=== PATIENT | female | born 1965 | race African-American/Black ===

== ENCOUNTER → 2016-09-22 | Outpatient (CLI) | payer OTHER ==
--- NOTE | 2016-09-22 12:26 | RAD ---
APPROVED REPORT Patient Location : OUT-PATIENT Indications Lower Extremity Pain : Bilateral Lower Extremity Edema : Bilateral Risk Factors Obesity Findings The right and left greater and lesser saphenous veins were imaged to evaluate for reflux. The right g reat saphenous vein measures approximately 7 mm with a reflux time of 2.3 seconds throughout its cour se. The right lesser saphenous vein does not reveal any evidence of reflux. The left greater saphenou s vein measures approximately 5 mm at the junction and does not show any evidence of reflux. The left lesser saphenous vein was not well identified. Of note the right anterior accessory vein is present but no clear evidence of reflux is noted. There is one supervisor trust accounts approximately 24 cm up and 11 cm back with a diameter 1.5 mm on the right side. Critical Notification Critical Value: No <Conclusion> Positive for reflux in the right greater saphenous vein. 1 supervisor trust accounts identified in the right calf.
--- NOTE | 2016-09-22 12:37 | RAD ---
APPROVED REPORT Bilateral Lower Extremity Venous Study for Venous Competence Patient Location: OUT-PATIENT Indications Lower Extremity Pain: Bilateral Lower Extremity Edema: Bilateral Varicose Veins Risk Factors Obesity Vein Imaging (Right) CFV (R): Compressible SFJ (R): Compressible FEM (R): Compressible POP (R): C, Compressible DFV (R): Compressible GSV (R): Compressible Vein Imaging (Left) CFV (L): Compressible SFJ (L): Compressible FEM (L): Compressible POP (L): Compressible GSV (L): Compressible Doppler Evaluation (Right) CFV (R): Phasic POP (R):Phasic Doppler Evaluation (Left) CFV (L):Phasic POP (L):Phasic Findings The bilateral deep venous system in the lower external knees was evaluated for thrombus. The common femoral vein, superficial femoral vein and popliteal veins bilaterally appear to be compre ssible. Normal spectral waveforms and color Doppler is noted. Bilateral profunda veins are also compr essible. The below-knee veins were not well visualized. Critical Notification Critical Value: No <Conclusion> No deep venous thrombosis noted in the common femoral, superficial femoral and popliteal veins bilate rally.
== END | disposition home or self-care (01) ==
LOC: US 08:23
PROVIDERS: ATTEND Internal Medicine Cardiovascular Disease
DX: I87.2 Venous insufficiency (chronic) (peripheral) (principal)
CPT/HCPCS: 93970

== ENCOUNTER → 2016-11-01 | Outpatient (CLI) | payer OTHER ==
--- NOTE | 2016-11-01 12:58 | RAD ---
Bilateral limited breast ultrasound 11/01/2016 Clinical history: Six-month follow-up of probably benign nodules within both breasts. Technique: A real-time ultrasound examination of the right breast at the 2:00 position and the left breast at the 2 and 6:00 position was performed. Multiple images were obtained. Findings: Comparison study is dated 04/21/2016. The 4 mm complex cyst seen on the patient's previous ultrasound is not visualized on today's study and has presumably resolved. No solid or cystic mass is seen within the visualized portions of the right breast by ultrasound. A 5 mm rounded anechoic structure with internal echoes is seen at the 2:00 position of the left breast. This is unchanged. Its ultrasound appearance is consistent with a slightly complex cyst. The 8 mm complex cyst seen at the 6:00 position of the left breast on the previous examination is not visualized on today's study and has presumably resolved. No solid or cystic mass is seen in this area by ultrasound. Impression: The complex cysts seen within the right breast and the 6:00 position of the left breast are no longer visualized and presumably have resolved.. Stable sonographic appearance of the 5 mm complex cyst at the 2:00 position of the left breast. No new mass is seen. I would recharacterize the patient's mammograms as a BI-RADS Category 2 benign findings with a recommendation for routine yearly screening mammography for follow-up. Patient information was entered into the reminder system with a target date for the patient's next screening mammogram of 04/05/2017.
== END | disposition home or self-care (01) ==
LOC: KCIC US 12:25
PROVIDERS: ATTEND Obstetrics & Gynecology
DX: R92.8 Other abnormal and inconclusive findings on diagnostic imaging of breast (principal)
CPT/HCPCS: 76641

== ENCOUNTER → 2016-12-26 | Outpatient (CLI) | payer OTHER ==
[~2016-12-26] MED LIST: EPI SQ ONE; LIDOCAINE SQ ONE; SODIUM BICARBONATE SQ ONE; [UNRECOGNIZED DRUG - OTHER] SQ ONE
--- NOTE | 2016-12-26 11:48 | CARD ---
APPROVED REPORT Patient StatusOUT-PATIENT Manager Lighting: RHIANNON VENCES Procedure(s) performed: Endovenous radiofrequency ablation of the right greater saphenous vein. INDICATION FOR PROCEDURE The indication(s) include : Symptomatic Chronic Venous Insufficiency with Varicose Veins, lower extre mity pain and edema. PROCEDURE NARRATIVE The patient was transferred to the procedure suite and the insufficient saphenous vein was mapped by ultrasound and diagrammed on the underlying skin. The depth and diameter of the vein(s) to be treate d was documented. The varicose tributary veins and suitable access sites were identified and mapped as well. The patient was then positioned supine on the procedure table. The entire limb was sterile ly prepared and the lower extremity and treatment table were sterilely draped. The RF catheter was placed on the sterile field, flushed and wiped down, prepared, and connected by a sterile cable. The patient was placed in reverse-Trendelenburg position and local anesthesia was instilled in the sk in overlying the access site. A skin incision was made overlying the identified and mapped greater s aphenous vein entry site. The vein was punctured through the incision and using ultrasound guidance and the Seldinger technique a guide wire was introduced through the needle which was then exchanged o rai the guide wire for a 7 F sheath. The guide wire was removed and the sheath was flushed. The RF probe was placed into the vein through the sheath and positioned at a point just distal (about 0.5 to 1 cm) to the entrance point of the superficial epigastric artery using ultrasound guidance. After the RF probe position was verified by the ultrasound, tumescent anesthesia was infiltrated, und er ultrasound guidance, precisely into the perivenuus compartment along the entire length of vein fro m the entry site to the saphenofemoral junction until a "halo" of fluid was noted around the vein. The patient was then placed in Trendelenburg position. After the RF probe position was again confirm ed with ultrasound imaging, moderate external compression was applied over the RF heating element, an d RF energy was applied. The probe was withdrawn sequentially in 6.5 cm steps with slight overlap of 7 cm segments of ablation and monitored to keep the probe temperature at 120 degrees Celsius and the generator output well below its maximum power. Treatment Segments: 6 Total Length: 26 cm. Tota l Ablation time: 2 minutes. Repeat ultrasound of the saphenous vein was performed confirming successful treatment. The catheter and sheath were withdrawn and hemostasis established with direct pressure. After assuring hemostasis , the skin incision over the saphenous vein was closed with a bandage and an external compression jerri ssing was applied from the level of the foot to the most proximal level of the thigh.
== END | disposition home or self-care (01) ==
LOC: VNUS 10:58
PROVIDERS: ATTEND Internal Medicine Cardiovascular Disease
DX: I83.11 Varicose veins of right lower extremity with inflammation (principal)
CPT/HCPCS: 36475; J3490; J7030

== ENCOUNTER → 2016-12-29 | Outpatient (CLI) | payer OTHER ==
--- NOTE | 2016-12-29 12:07 | RAD ---
APPROVED REPORT Right Lower Extremity Venous Study for DVT Patient Location: OUT-PATIENT Indications s/p rt gsv ablation Vein Imaging (Right) CFV (R): Compressible SFJ (R): Compressible FEM (R): Compressible POP (R): Compressible DFV (R): Compressible PTV (R): Spontaneous GSV (R): Absent Flow Peroneals (R): Spontaneous Doppler Evaluation (Right) CFV (R): Spontaneous POP (R):Spontaneous Findings Kinney scale images of the right common femoral, superficial femoral and popliteal veins does not revea l any evidence of thrombus. The veins are compressible. Color Doppler and spectral waveforms do not s how any evidence of obstruction to flow. The below-knee veins appear to show spontaneous flow. [facility] great saphenous vein is ablated total point just distal to the saphenofemoral junction of approxi mate 2 cm. No evidence of deep venous thrombosis is noted. Critical Notification Critical Value: No <Conclusion> Negative for deep venous thrombosis in the right lower extremity with a successful great saphenous ve in ablation consistent with history.
== END | disposition home or self-care (01) ==
LOC: US 08:00
PROVIDERS: ATTEND Internal Medicine Cardiovascular Disease
DX: I82.403 Acute embolism and thrombosis of unspecified deep veins of lower extremity, bilateral (principal)
CPT/HCPCS: 93971

== ENCOUNTER → 2019-02-25 | Outpatient (CLI) | payer OTHER ==
--- NOTE | 2019-02-25 17:55 | KCIC ---
Bilateral digital screening mammograms with 3-D tomosynthesis: Reason for examination: Routine screening. Comparison is made to previous studies dated 04/05/2016 and 07/07/2010. Bilateral mammograms in CC and oblique projections were obtained with 2-D imaging and 3-D tomosynthesis imaging on a Siemens Inspiration unit and reviewed on the workstation. Interpretation was made with the benefit of CAD. The skin and nipples show no abnormalities. No abnormal axillary lymph nodes are seen. The breast parenchyma is heterogeneously dense. (Breast density: Category C.) There are no dominant masses, suspicious calcifications or architectural distortion. Impression: No evidence of malignancy. Recommend routine screening. Your patient's mammogram demonstrates that she has dense breast tissue (breast density category C or D), which could hide abnormalities, and if she has other risk factors for breast cancer that have been identified, she might benefit from supplemental screening tests that may be suggested by you as her ordering physician. Dense breast tissue, in and of itself, is a relatively common condition. Therefore, this information is not provided to cause undue concern, but rather to raise your awareness and to promote discussion with your patient regarding the presence of other risk factors, in addition to dense breast tissue. Your patient's mammography results will be sent to her. BI-RAD Category 2: Benign. "Our facility is accredited by the [employer] Mammography Program." This patient's information has been entered into a reminder system for the patient to be notified with the results of her examination and a target date for the next mammogram. Electronically signed by: Lakshmi Mendosa MD (02/25/2019 5:52 PM) [id number]
== END | disposition home or self-care (01) ==
LOC: KCIC MAMMO 16:53
PROVIDERS: ATTEND Obstetrics & Gynecology
DX: Z12.31 Encounter for screening mammogram for malignant neoplasm of breast (principal)
CPT/HCPCS: 77063; 77067

== ENCOUNTER → 2019-07-10 | Outpatient (CLI) | payer OTHER ==
[~2019-07-10] MED LIST changes: -EPI SQ ONE; +IOHEXOL 240 MG/ML 50ML VIAL. PO ONE; +IOHEXOL 300 MG/ML 100ML VIAL. IV ONE; -LIDOCAINE SQ ONE; -SODIUM BICARBONATE SQ ONE; -[UNRECOGNIZED DRUG - OTHER] SQ ONE
--- NOTE | 2019-07-11 11:39 | KCIC ---
CT of the abdomen with and without IV contrast compared to similar examination dated April 26, 2016 for right upper quadrant mass, hernia, prior , prior hysterectomy, patient feels a mass in the right upper quadrant, feels different than 4 years ago, possible lipoma on a prior CT scan. TECHNIQUE: Contiguous helical 3 mm axial images are obtained through the abdomen both prior to and following administration of IV contrast. Sagittal and coronal reformations are evaluated. FINDINGS: Lung bases are clear. There is a small amount of debris within the distal esophagus of doubtful clinical concern. No significant osseous abnormalities are seen. In segment 8 of the liver on series #3 axial image #17, there is a 1.5 cm vague nodular hypervascular region which does not displace vascularity, and is unchanged from 2016, and is most consistent with focal perfusion abnormality. There are a few subcentimeter cystic lesions throughout the liver which are too small to characterize but almost certainly benign. No further follow-up is encouraged. The spleen, pancreas, gallbladder, and bilateral adrenal glands are grossly unremarkable. Bilateral kidneys are grossly unremarkable as well. No suspicious mesenteric or retroperitoneal adenopathy is seen. No vascular anomalies are evident. There is heterogeneous opacification of large and small bowel with no gross abnormalities identified. In the right anterior abdominal subcutaneous tissues, there is redemonstration of a circumscribed homogeneously fatty ovoid lesion immediately superficial to the abdominal musculature, measuring 7.3 x 2.9 cm today, slightly larger than on the prior examination where it measured 5.1 cm in greatest dimension. There are no suspicious features to this abnormality and this almost certainly represents an enlarging benign lipoma. IMPRESSION: 1. Circumscribed homogeneous fatty focal lesion within the right hemiabdominal subcutaneous tissues slightly larger today, devoid of any suspicious features, and almost certainly an enlarging benign lipoma. 2. Benign-appearing hypervascular focus in segment 8 of the liver likely focal perfusion defect. No further follow-up is encouraged. 3. Multiple subcentimeter cystic lesions in the liver which are too small to completely characterize but almost certainly benign. No further follow-up is encouraged. PQRS Compliance Statement: One or more of the following individualized dose reduction techniques were utilized for this examination: 1. Automated exposure control 2. Adjustment of the mA and/or kV according to patient size 3. Use of iterative reconstruction technique Electronically signed by: Nate Kendrcik MD (07/11/2019 11:36 AM) [id number]
== END | disposition home or self-care (01) ==
LOC: KCIC CT 11:57
PROVIDERS: ATTEND Family Medicine
DX: R19.01 Right upper quadrant abdominal swelling, mass and lump (principal); M79.89 Other specified soft tissue disorders; K46.9 Unspecified abdominal hernia without obstruction or gangrene; Z90.710 Acquired absence of both cervix and uterus
CPT/HCPCS: 74170; Q9966; Q9967

== ENCOUNTER → 2020-03-23 | Outpatient (CLI) | payer OTHER ==
--- NOTE | 2020-03-23 11:25 | KCIC ---
Bilateral digital screening mammograms with 3-D tomosynthesis: Reason for examination: Routine screening. Comparison is made to previous studies dated 02/25/2019 and 04/05/2016. Bilateral mammograms in CC and oblique projections were obtained with 2-D imaging and 3-D tomosynthesis imaging on a Siemens Inspiration unit and reviewed on the workstation. Interpretation was made with the benefit of CAD. The skin and nipples show no abnormalities. No abnormal axillary lymph nodes are seen. The breast parenchyma is heterogeneously dense. (Breast density: Category C.) There are no dominant masses, suspicious calcifications or architectural distortion. Impression: No evidence of malignancy. Recommend routine screening. Your patient's mammogram demonstrates that she has dense breast tissue (breast density category C or D), which could hide abnormalities, and if she has other risk factors for breast cancer that have been identified, she might benefit from supplemental screening tests that may be suggested by you as her ordering physician. Dense breast tissue, in and of itself, is a relatively common condition. Therefore, this information is not provided to cause undue concern, but rather to raise your awareness and to promote discussion with your patient regarding the presence of other risk factors, in addition to dense breast tissue. Your patient's mammography results will be sent to her. BI-RAD Category 2: Benign. "Our facility is accredited by the [employer] Mammography [employer]." This patient's information has been entered into a reminder system for the patient to be notified with the results of her examination and a target date for the next mammogram. Electronically signed by: Lakshmi Mendosa MD (03/23/2020 11:22 AM) [id number]
== END ==
LOC: KCIC MAMMO 11:52
PROVIDERS: ATTEND Obstetrics & Gynecology
DX: Z12.31 Encounter for screening mammogram for malignant neoplasm of breast (principal)
CPT/HCPCS: 77063; 77067

== ENCOUNTER → 2020-08-07 | Outpatient (CLI) | payer OTHER ==
[~2020-08-07] MED LIST changes: +CONTRAST GIVEN. MC PRN
--- NOTE | 2020-08-07 17:50 | KCIC ---
EXAM: CT Abdomen and Pelvis with IV contrast INDICATION: Reason: LLQ PAIN / Spl. Instructions: ORAL AND IV OMNI 300 100ML / History: TECHNIQUE: Multi-detector row CT images were acquired from the lung bases through the abdomen and pel vis with the use of IV contrast. Sagittal and coronal images were acquired from the transaxial data. All CT scans performed at this facility utilize dose optimization techniques as appropriate to the ex am, including the following: Automated exposure control and adjustment of the mA and/or KV according to patient size (this includes techniques or standardized protocols for targeted exams where dose is indication/reason for exam). IV CONTRAST: Administered ORAL CONTRAST: Administered COMPARISON: Noncontrast abdomen CT of 07/10/2019, obtained with oral contrast. FINDINGS: LOWER CHEST: Unremarkable LIVER: Tiny hypodensity in the right hepatic lobe, statistically likely to be a cyst and unchanged f rom the previous exam. BILIARY SYSTEM: Gallbladder is unremarkable. Bile ducts are not dilated. PANCREAS: Unremarkable SPLEEN: Unremarkable ADRENALS: Unremarkable KIDNEYS & URETERS: Unremarkable BLADDER: Unremarkable REPRODUCTIVE ORGANS: Hysterectomy. No adnexal mass. Ovaries not well seen and may be surgically abse nt as well. GASTROINTESTINAL: The stomach, small bowel, and colon are unremarkable. The appendix is normal. MESENTERY/PERITONEUM/RETROPERITONEUM: Unremarkable VASCULAR: Unremarkable LYMPH NODES: No adenopathy OSSEOUS & SOFT TISSUES: Unremarkable IMPRESSION: Unremarkable CT of the abdomen and pelvis status post previous hysterectomy.. Electronically signed by: José Hunter MD (08/07/2020 5:47 PM) [id number]
== END ==
LOC: KCIC CT 08:56
PROVIDERS: ATTEND Internal Medicine Gastroenterology
DX: R10.32 Left lower quadrant pain (principal); Z90.711 Acquired absence of uterus with remaining cervical stump
CPT/HCPCS: 74177; Q9966; Q9967

== ENCOUNTER → 2021-04-02 | Outpatient (CLI) | payer OTHER ==
--- NOTE | 2021-04-02 09:15 | KCIC ---
Bilateral digital screening mammograms with 3-D tomosynthesis: Reason for examination: Routine screening. Comparison is made to previous studies dated back to 04/05/2016. Bilateral mammograms in CC and oblique projections were obtained with 2-D imaging and 3-D tomosynthes is imaging on a Siemens Inspiration unit and reviewed on the workstation. Interpretation was made wit h the benefit of CAD. The skin and nipples show no abnormalities. No abnormal axillary lymph nodes are seen. The breast par enchyma is heterogeneously dense. (Breast density: Category C.) There are small nodular parenchymal d ensities bilaterally which are stable. There are no new dominant masses, suspicious calcifications or architectural distortion. Impression: No evidence of malignancy. Recommend routine screening. Your patient's mammogram demonstrates that she has dense breast tissue (breast density category C or D), which could hide abnormalities, and if she has other risk factors for breast cancer that have bee n identified, she might benefit from supplemental screening tests that may be suggested by you as her ordering physician. Dense breast tissue, in and of itself, is a relatively common condition. Therefo re, this information is not provided to cause undue concern, but rather to raise your awareness and t o promote discussion with your patient regarding the presence of other risk factors, in addition to d ense breast tissue. Your patient's mammography results will be sent to her. BI-RAD Category 2: Benign. "Our facility is accredited by the [employer] Mammography Program." This patient's information has been entered into a reminder system for the patient to be notified wit h the results of her examination and a target date for the next mammogram. Electronically signed by: Lakshmi Mendosa MD (04/02/2021 9:13 AM) [email or web address]
== END ==
LOC: KCIC MAMMO 07:59
PROVIDERS: ATTEND Family Medicine
DX: Z12.31 Encounter for screening mammogram for malignant neoplasm of breast (principal)
CPT/HCPCS: 77063; 77067